=== PATIENT | male | born 1975 | race African-American/Black ===

== ENCOUNTER 2020-06-25 23:53 | Emergency (ER) | payer SELFPAY ==
--- NOTE | 2020-06-26 00:21 | ER Document Report ---
ED General - General Stated Complaint: GROIN PAIN Time Seen by Provider: 06/26/20 00:14 - HPI Patient complains to provider of: groin pain Notes: 44 y/o presenting to ED for evaluation of right sided testicle pain no penile discharge or urinary pain he states that he has felt like his right testicle is heavier than the left and it has been aching for the last 24 hours no fever or chills no nausea/vomiting no h/o STI no rashes to groin no trauma - Related Data Allergies/Adverse Reactions: cephalexin [From Keflex] Allergy (Verified 06/26/20 00:34) Penicillins Allergy (Verified 06/26/20 00:33) Sulfa (Sulfonamide Antibiotics) Allergy (Verified 06/26/20 00:34) Past Medical History - Social History Smoking Status: Unknown if Ever Smoked Family History: Reviewed & Not Pertinent Review of Systems - Review of Systems Constitutional: No symptoms reported EENT: No symptoms reported Cardiovascular: No symptoms reported Respiratory: No symptoms reported Gastrointestinal: No symptoms reported Genitourinary: denies: Dysuria, Frequency Male Genitourinary: Testicular pain. denies: Penile discharge Musculoskeletal: No symptoms reported Skin: No symptoms reported Hematologic/Lymphatic: No symptoms reported Neurological/Psychological: No symptoms reported Physical Exam - Vital signs Vitals: Temp Pulse Resp BP Pulse Ox 100.2 F 86 16 181/64 H 98 06/26/20 00:10 06/26/20 00:10 06/26/20 00:10 06/26/20 00:10 06/26/20 00:10 Interpretation: Normal - General General appearance: Appears well, Alert - HEENT Head: Normocephalic, Atraumatic Eyes: Normal Pupils: PERRL - Respiratory Respiratory status: No respiratory distress Chest status: Nontender Breath sounds: Normal Chest palpation: Normal - Cardiovascular Rhythm: Regular Heart sounds: Normal auscultation Murmur: No - Abdominal Inspection: Normal Distension: No distension Bowel sounds: Normal Tenderness: Nontender Organomegaly: No organomegaly - Genitourinary Tenderness: Testicle tender - right Scrotum: Normal - Back Back: Normal, Nontender - Extremities General upper extremity: Normal inspection, Nontender, Normal color, Normal ROM, Normal temperature General lower extremity: Normal inspection, Nontender, Normal color, Normal ROM, Normal temperature, Normal weight bearing. No: Barry's sign - Neurological Neuro grossly intact: Yes Cognition: Normal Orientation: AAOx4 Daniel Coma Scale Eye Opening: Spontaneous Daniel Coma Scale Verbal: Oriented [place] Coma Scale Motor: Obeys Commands Daniel Coma Scale Total: 15 Speech: Normal Motor strength normal: LUE, RUE, LLE, RLE Sensory: Normal - Psychological Associated symptoms: Normal affect, Normal mood - Skin Skin Temperature: Warm Skin Moisture: Dry Skin Color: Normal Course - Re-evaluation Re-evalutation: 06/26/20 00:20 will check urine and US given complaint of right testicle pain ->torsion vs hernia vs epididymitis 06/26/20 02:12 US concerning for epididymitis zithromax given in ED dc w/ doxyn cephalosporin allergic GCC pending - Vital Signs Vital signs: Temp Pulse Resp BP Pulse Ox 100.2 F 86 16 181/64 H 98 06/26/20 00:10 06/26/20 00:10 06/26/20 00:10 06/26/20 00:10 06/26/20 00:10 - Laboratory Laboratory results interpreted by me: 06/26/20 00:50 Urine Protein 100 H Urine Urobilinogen 2.0 H Ur Leukocyte Esterase SMALL H - Diagnostic Test Radiology reviewed: Image reviewed, Reports reviewed Discharge - Discharge Clinical Impression: Epididymitis Condition: Stable Disposition: HOME, SELF-CARE Instructions: Epididymitis (OM) Additional Instructions: You have been diagnosed with epididymitis. Please wear tighty whitey underwear or use a jock strap to reduce your discomfort Take the antibiotic doxycycline as directed Return to the ED with worsening symptoms or concerns Follow up with urology as an outpatient Prescriptions: Doxycycline Hyclate [Vibramycin 100 mg Tablet] 100 mg PO BID #20 tablet Referrals: LUCAS OCAMPO MD [NO LOCAL MD] - Follow up as needed
[2020-06-26 01:07] LABS: APPEARANCE,URINE CLEAR; BILIRUBIN,URINE NEGATIVE (NEGATIVE); COLOR,URINE YELLOW; GLUCOSE, URINE NEGATIVE (NEGATIVE); KETONES,URINE NEGATIVE (NEGATIVE); LEUKOCYTE ESTERASE,URINE SMALL (NEGATIVE); NITRITE,URINE NEGATIVE (NEGATIVE); PROTEIN,URINE 100 mg/dL (NEGATIVE)
--- NOTE | 2020-06-26 02:05 | RADIOLOGY REPORT (SQ) ---
Ultrasound scrotum and testicles on 06/26/2020 at 1:32 AM Clinical indications: Right-sided testicular pain COMPARISON: None FINDINGS: Multiple sonographic images are obtained throughout the scrotum and testicles, both transverse and sagittal images are obtained. Bilateral testicles are homogeneous in echotexture without evidence of an intratesticular mass. Flow is demonstrated within both testicles without evidence of torsion. There is some heterogeneous enlargement of the right epididymis with some increased flow in the right epididymis suggesting right-sided epididymitis. There are right greater than left hydroceles. No other extratesticular abnormality is noted. IMPRESSION: 1. Findings suggesting mild right-sided epididymitis. 2. Right greater than left hydroceles.
[2020-06-26] MEDS ORDERED: AZITHROMYCIN 250 MG TABLET PO ONE (02:06)
[2020-06-26 02:27] VITALS: BP 164/72
[2020-06-26 02:31] LABS: CHLAM PCR NOT DETECTED (NOT DETECT)
== END 2020-06-26 02:26 | disposition home or self-care (01) ==
LOC: ER 23:53
DX: N45.1 Epididymitis (principal); N43.3 Hydrocele, unspecified; Z88.1 Allergy status to other antibiotic agents; Z88.0 Allergy status to penicillin; Z88.2 Allergy status to sulfonamides
CPT/HCPCS: 76870; 81001; 87491; 87591; 93976; 99284